=== PATIENT | male | born 1990 | race Caucasian/White ===

== ENCOUNTER 2024-06-26 12:42 | Inpatient (IN) | payer OTHER ==
[2024-06-26] MEDS ORDERED: IBUPROFEN 400 MG TABLET (FP) PO PRN (13:37)
[2024-06-26] MEDS ORDERED: IBUPROFEN 600 MG TABLET (FP) PO PRN (13:37)
[2024-06-26] MEDS ORDERED: LOPERAMIDE HCL 2 MG CAPSULE PO PRN (13:37)
[2024-06-26] MEDS ORDERED: NALOXONE (NARCAN) HCL 4 MG/0.1 ML SPRAY NS PRN (13:37)
[2024-06-26] MEDS ORDERED: POLYETHYLENE GLYCOL (HEALTHYLAX) 3350 17 GM PACKET PO PRN (13:37)
[2024-06-26] MEDS ORDERED: BENZONATATE 200 MG CAPSULE PO PRN (13:37)
[2024-06-26] MEDS ORDERED: guaiFENesin 600 MG TABLET.ER (FP) PO PRN (13:37)
[2024-06-26] MEDS ORDERED: BENZOCAINE/MENTHOL (CHLORASEPTIC ) LOZENGE MM PRN (13:37)
[2024-06-26] MEDS ORDERED: MAG HYDROX/AL HYDROX/SIMETH 30 ML UNIT-DOSE CUP PO PRN (13:37)
[2024-06-26] MEDS ORDERED: ACETAMINOPHEN 325 MG TABLET (FP) PO PRN (13:37)
[2024-06-26] MEDS ORDERED: MAGNESIUM HYDROX 2400MG/30ML ORAL SUSPENSION 30 ML CUP PO PRN (13:37)
[2024-06-26 14:57] VITALS: BMI 34.3
[2024-06-26] MEDS ORDERED: NICOTINE 7 MG/24 HOURS TOPICAL PATCH TD ONE (15:14)
[2024-06-26] MEDS: NICOTINE 7 MG/24 HOURS TOPICAL PATCH TD SCH (15:15)
[2024-06-26] MEDS ORDERED: PRENATAL VITAMINS W/ FOLIC ACID TABLET (FP) PO ONE (15:16)
[2024-06-26] MEDS: PRENATAL VITAMINS W/ FOLIC ACID TABLET (FP) PO SCH (15:17)
[2024-06-26 15:50] VITALS: BP 135/83
[2024-06-26] MEDS: hydrOXYzine PAMOATE 25 MG CAPSULE (FP) PO PRN (15:51)
[2024-06-26] MEDS ORDERED: ALBUTEROL SO4 HFA INHALER IH PRN (16:35)
[2024-06-26 17:37] VITALS: PULSE 85; RESP 18; TEMP 98.2
[2024-06-26] MEDS ORDERED: THIAMINE 100 MG TABLET PO SCH (22:00)
[2024-06-26] MEDS ORDERED: MELATONIN 5 MG TABLETS PO SCH (22:00)
[2024-06-27] MEDS ORDERED: NALTREXONE HCL 50 MG TABLET PO SCH (10:00)
== END 2024-06-26 18:34 | disposition left against medical advice (07) | DRG 770 ==
LOC: YASAS 12:42 → Y3E 15:21
PROVIDERS: ADMIT Psychiatry & Neurology Pain Medicine; ATTEND Psychiatry & Neurology Pain Medicine
PROC: HZ42ZZZ Group Counseling for Substance Abuse Treatment, Cognitive-Behavioral (ICD-10-PCS; principal; 2024-06-26)
DX: F10.20 Alcohol dependence, uncomplicated (principal); F14.20 Cocaine dependence, uncomplicated; F17.210 Nicotine dependence, cigarettes, uncomplicated; F43.10 Post-traumatic stress disorder, unspecified; F60.2 Antisocial personality disorder; F42.9 Obsessive-compulsive disorder, unspecified; J45.909 Unspecified asthma, uncomplicated
CPT/HCPCS: 36415; 80305; 80307; 87811; 93005; 93010